=== PATIENT | female | born 1935 | race Caucasian/White ===

== ENCOUNTER 2022-04-10 15:48 | Emergency (ER) | payer OTHER ==
[~2022-04-10] VITALS: Ht 157.5 cm; Wt 68.0 kg
[2022-04-10] MEDS ORDERED: KETOROLAC 30MG VIAL (30MG/ML) ONE (16:51)
[2022-04-10] MEDS ORDERED: NAPR-1196 PO (16:54)
[2022-04-10] MEDS ORDERED: KETOROLAC 30MG VIAL (30MG/ML) IM ONE (17:00)
[2022-04-10 17:43] VITALS: BP 129/78
== END 2022-04-10 17:52 | disposition home or self-care (01) ==
LOC: EDH 15:48
DX: S42.212A Unspecified displaced fracture of surgical neck of left humerus, initial encounter for closed fracture (principal); Y93.01 Activity, walking, marching and hiking; W10.8XXA Fall (on) (from) other stairs and steps, initial encounter; Y93.89 Activity, other specified; Y92.89 Other specified places as the place of occurrence of the external cause; Y99.8 Other external cause status
CPT/HCPCS: 99283; 73030; 96372; J1885